=== PATIENT | female | born 2000 | race Caucasian/White ===

== ENCOUNTER 2024-01-17 21:53 | Inpatient (IN) | payer OTHER ==
[~2024-01-17] VITALS: Ht 162.6 cm; Wt 162.0 kg
[2024-01-17 22:24] LABS: HEMATOCRIT 41.2 % (36.0-47.0); HEMOGLOBIN 13.9 g/dl (12.0-15.5); MEAN CORPUSCULAR HEMOGLOBIN 28.7 pg (27.0-33.0); MEAN CORPUSCULAR HGB CONC 33.7 g/dl (32.0-36.5); MEAN CORPUSCULAR VOLUME 85.1 fl (80.0-96.0); PLATELET COUNT, AUTOMATED 300 10^3/uL (150-450); RED BLOOD COUNT 4.84 10^6/uL (4.00-5.40); WHITE BLOOD COUNT 12.6 10^3/uL (4.0-10.0)
[2024-01-17 22:50] LABS: ETHYL ALCOHOL (ETHANOL) < 0.003 % (0.000-0.010)
[2024-01-17 22:52] LABS: ALBUMIN 4.6 G/DL (3.2-5.2); ALKALINE PHOSPHATASE 82 U/L (46-116); ALT/SGPT 25 U/L (7.0-40); AST/SGOT 21 U/L (<34); BILIRUBIN,DIRECT 0.1 MG/DL (<0.4); BILIRUBIN,TOTAL 0.5 MG/DL (0.3-1.2); BLOOD UREA NITROGEN 9 MG/DL (9-23); CALCIUM LEVEL 9.1 MG/DL (8.5-10.1); CARBON DIOXIDE LEVEL 22 MMOL/L (20-31); CHLORIDE LEVEL 105 MMOL/L (98-107); CREATININE FOR GFR 0.62 MG/DL (0.55-1.30); GLOMERULAR FILTRATION RATE > 60.0 (>60); GLUCOSE, FASTING 126 MG/DL (60-100); POTASSIUM SERUM 3.3 MMOL/L (3.5-5.1); SALICYLATE LEVEL < 3.0 MG/DL (<30); SODIUM LEVEL 140 MMOL/L (136-145); TOTAL PROTEIN 7.5 G/DL (5.7-8.2)
[2024-01-17 22:54] LABS: HCG, SERUM QUALITATIVE NEGATIVE (NEGATIVE); THYROID STIMULATING HORMONE 1.006 uIU/ML (0.55-4.78)
[2024-01-18] MEDS: ONDANSETRON 4MG ORAL DISINTEGRATING TAB PO ONE (00:06)
[2024-01-18 00:15] LABS: AMPHETAMINES LEVEL URINE NEGATIVE (NEGATIVE); BARBITURATES URINE NEGATIVE (NEGATIVE); BENZODIAZEPINES URINE NEGATIVE (NEGATIVE); COCAINE METABOLITE URINE NEGATIVE (NEGATIVE); METHADONE URINE NEGATIVE (NEGATIVE); OPIATES URINE NEGATIVE (NEGATIVE); PHENCYCLIDINE URINE NEGATIVE (NEGATIVE)
[2024-01-18 00:20] LABS: CANNABINOIDS URINE POSITIVE (NEGATIVE)
[2024-01-18] MEDS ORDERED: LINZ72CA PO (02:04)
[2024-01-18] MEDS ORDERED: JUNETAB PO (02:04)
[2024-01-18] MEDS ORDERED: VENL75CA47 PO (02:04)
[2024-01-18] MEDS ORDERED: METF500T13 PO (02:04)
[2024-01-18] MEDS ORDERED: HOME MED LIST COMPLETE! XX SCH (02:05)
[2024-01-18] MEDS: VENLAFAXINE **XR** 75MG CAPSULE PO SCH (09:46)
[2024-01-18] MEDS: POTASSIUM CHLORIDE 10MEQ SR TABLET PO ONE (09:46)
[2024-01-18] MEDS: LORazepam 0.5 MG TAB PO STA (09:46)
[2024-01-18] MEDS ORDERED: IBUPROFEN 400MG TAB PO PRN (20:30)
[2024-01-18] MEDS ORDERED: diphenhydrAMINE 25MG CAP PO PRN (20:30)
[2024-01-18] MEDS ORDERED: ACETAMINOPHEN TAB 650MG DOSE (2X325MG) PO PRN (20:30)
[2024-01-18] MEDS ORDERED: LORazepam 1 MG TAB PO PRN (20:30)
[2024-01-18] MEDS ORDERED: MAALOX 30 ML SUSP *UDC PO PRN (20:30)
[2024-01-18] MEDS ORDERED: MOM 30ML SUSPENSION UDC PO PRN (20:30)
[2024-01-18] MEDS: metFORMIN (GLUCOPHAGE) 500MG TAB PO SCH (21:00)
[2024-01-18] MEDS: traZODone 50 MG TAB PO PRN (22:53)
[2024-01-18 23:19] VITALS: BP 135/74; TEMP 97.9; O2SAT 98
[2024-01-19 06:27] VITALS: BP 122/66; TEMP 97.7; O2SAT 97
[2024-01-19] MEDS: VENLAFAXINE **XR** 75MG CAPSULE PO SCH (08:28)
[2024-01-19 18:37] VITALS: BP 137/79; TEMP 97.9
[2024-01-20 06:18] VITALS: BP 130/67; TEMP 97.8; O2SAT 98
[2024-01-20] MEDS: lamoTRIgine 25MG TAB PO SCH (08:43)
[2024-01-20] MEDS: LORazepam 0.5 MG TAB PO PRN (08:43)
[2024-01-20 18:36] VITALS: BP 137/67; TEMP 97.6
[2024-01-20] MEDS: busPIRone 5 MG TAB PO SCH (21:13)
[2024-01-21 05:57] VITALS: BP 135/71; TEMP 98.1; O2SAT 96
[2024-01-21] MEDS ORDERED: VENL75CA47 PO (08:41)
[2024-01-21] MEDS ORDERED: BUSP5TA PO (08:41)
[2024-01-21] MEDS ORDERED: LAMI25TA PO (08:41)
== END 2024-01-21 11:05 | disposition home or self-care (01) | DRG 885 ==
LOC: M ED 21:53 → M PSY 01-18 21:38
PROVIDERS: ADMIT Psychiatry & Neurology Psychiatry; ATTEND Student in an Organized Health Care Education/Training Program
DX: F31.9 Bipolar disorder, unspecified (principal); R45.851 Suicidal ideations; F41.9 Anxiety disorder, unspecified; F60.89 Other specific personality disorders; Z63.0 Problems in relationship with spouse or partner; Z56.89 Other problems related to employment; E28.2 Polycystic ovarian syndrome; E87.6 Hypokalemia; Z79.899 Other long term (current) drug therapy; Z88.0 Allergy status to penicillin; Z88.8 Allergy status to other drugs, medicaments and biological substances; Z81.8 Family history of other mental and behavioral disorders